=== PATIENT | male | born 1950 | race Caucasian/White ===

== ENCOUNTER 2017-04-25 05:29 | Observation (INO) | payer BC ==
[2017-04-25] MEDS ORDERED: FENTAnyl 50 MCG/ML VIAL ×2 (06:14→07:41)
[2017-04-25] MEDS ORDERED: PROPOFOL 20 ML (06:14)
[2017-04-25] MEDS ORDERED: ROCURONIUM 50 MG INJ (06:14)
[2017-04-25] MEDS ORDERED: NEOSTIGMINE 3 MG/3 ML SYRINGE (06:14)
[2017-04-25] MEDS ORDERED: MIDAZOLAM 1 MG/ML 2 ML INJ (06:14)
[2017-04-25] MEDS ORDERED: GLYCOPYRROLATE 1 MG INJ (06:14)
[2017-04-25] MEDS ORDERED: LIDOCAINE 2% (SDV) 5 ML INJ (06:14)
[2017-04-25] MEDS ORDERED: ROPIVACAINE 0.5 % 30 ML VIAL ×2 (06:24→07:01)
[2017-04-25] MEDS ORDERED: DEXAMETHASONE 4 MG/ML 1 ML INJ (06:29)
[2017-04-25] MEDS ORDERED: MEPERIDINE 25 MG INJ IV (06:30)
[2017-04-25] MEDS ORDERED: DIPHENHYDRAMINE 50 MG INJ IV (06:30)
[2017-04-25] MEDS ORDERED: LABETALOL HCL 20MG INJ IV (06:30)
[2017-04-25] MEDS ORDERED: morphine (1 MG/ML) 10ML SYRINGE IV ×3 (06:30)
[2017-04-25] MEDS ORDERED: ATROPINE 1 MG/10 ML SYRINGE IV (06:30)
[2017-04-25] MEDS ORDERED: MIDAZOLAM 1 MG/ML 2 ML INJ IV (06:30)
[2017-04-25] MEDS ORDERED: ONDANSETRON 4 MG INJ IV (06:30)
[2017-04-25] MEDS ORDERED: hydrALAzine 20 MG INJ IV (06:30)
[2017-04-25] MEDS ORDERED: EPHEDrine SULFATE 50 MG/5 ML SYG IV (06:30)
[2017-04-25] MEDS ORDERED: HYDROmorphONE (0.2 MG/ML) 10ML SYG IV ×3 (06:30)
[2017-04-25] MEDS ORDERED: OXYCODONE/ACETAMINOPHEN (5/325) TAB PO ×2 (06:30)
[2017-04-25] MEDS ORDERED: FENTAnyl 50 MCG/ML VIAL IV ×2 (06:30)
[2017-04-25] MEDS ORDERED: ONDANSETRON 4 MG INJ (06:30)
[2017-04-25] MEDS ORDERED: POVIDONE IODINE 10% 28.4 GM OINT (07:01)
[2017-04-25] MEDS ORDERED: CA CHLORIDE 10% 10 ML SYRINGE (07:01)
[2017-04-25] MEDS: THROMBIN 5000 UNIT VIAL (08:22)
[2017-04-25] MEDS: POLYMYXIN/BACITRACIN 1L IRRIG (08:22)
[2017-04-25] MEDS: GELATIN SIZE 100 SPONGE (08:22)
[2017-04-25] MEDS ORDERED: SUCCINYLCHOLINE CHLORIDE 100 MG/5 ML SYG IV (08:51)
[2017-04-25] MEDS ORDERED: CEFAZOLIN 1 GM INJ (11:19)
[2017-04-25] MEDS ORDERED: POLYMYXIN/BACITRACIN 1L IRRIG (12:02)
[2017-04-25] MEDS ORDERED: FLUMAZENIL 0.5 MG INJ (13:01)
[2017-04-25] MEDS ORDERED: CEFAZOLIN 1 GM INJ IV (13:30)
[2017-04-25] MEDS ORDERED: morphine 10 MG INJ IV (13:30)
[2017-04-25] MEDS ORDERED: HYDROmorphONE 0.2 MG/ML PCA IV (13:30)
[2017-04-25] MEDS ORDERED: BISACODYL 10 MG SUPP PR (13:30)
[2017-04-25] MEDS ORDERED: DIPHENHYDRAMINE 25 MG CAP PO (13:30)
[2017-04-25] MEDS: CEFAZOLIN 1 GM/50 ML (PMX) 50 ML IVPB ×2 (14:05→20:48)
[2017-04-25] MEDS: SOD CHLORIDE 0.9% 1,000 ML IV ×2 (14:06→22:41)
[2017-04-25] MEDS: HYDROmorphONE 0.2 MG/ML PCA IV (14:22)
[2017-04-25] MEDS: CEPASTAT LOZENGE MT (17:34)
[2017-04-25] MEDS ORDERED: BISACODYL (EC) 5 MG TAB PO (19:30)
[2017-04-25] MEDS: DOCUSATE SODIUM 100 MG CAP PO (20:48)
[2017-04-25] MEDS: SENNA/DOCUSATE NA (8.6MG/50MG) TAB PO (20:48)
[2017-04-25] MEDS: ATORVASTATIN 10 MG TAB PO (20:49)
[2017-04-26] MEDS: HYDROmorphONE 0.2 MG/ML PCA IV ×2 (03:48→13:44)
[2017-04-26 05:23] LABS: ADD MAN DIFF? NO
[2017-04-26 05:48] LABS: BASOPHILS % 0.1 % (0.0-2.0); HEMATOCRIT 39.9 % (42.0-52.0); HEMOGLOBIN 12.8 g/dl (14.0-18.0); LYMPHOCYTES # 1.3 10^3/ul (0.8-2.9); LYMPHOCYTES % 10.6 % (15.0-51.0); MEAN CORPUSCULAR HEMOGLOBIN 26.9 pg (29.0-33.0); MEAN CORPUSCULAR HGB CONC 32.1 g/dl (32.0-37.0); MEAN CORPUSCULAR VOLUME 83.8 fl (82.0-101.0); MEAN PLATELET VOLUME 12.8 fl (7.4-10.4); MONOCYTE # 1.5 10^3/ul (0.3-0.9); MONOCYTES % 12.3 % (0.0-11.0); NEUTROPHIL # 9.2 10^3/ul (1.6-7.5); NEUTROPHILS % 76.6 % (39.0-77.0); PLATELET COUNT 144 10^3/UL (140-415); RED BLOOD COUNT 4.76 10^6/ul (4.70-6.10); RED CELL DISTRIBUTION WIDTH 13.4 % (11.5-14.5)
[2017-04-26] MEDS: PANTOPRAZOLE (EC) 40 MG TAB PO (06:25)
[2017-04-26] MEDS: CEFAZOLIN 1 GM/50 ML (PMX) 50 ML IVPB ×3 (06:25→21:31)
[2017-04-26 06:34] LABS: ALANINE AMINOTRANSFERASE 32 IU/L (13-69); ALBUMIN 3.6 g/dl (3.3-4.9); ALBUMIN/GLOBULIN RATIO 1.16; ALKALINE PHOSPHATASE 71 IU/L (42-121); ANION GAP 15 (8-16); ASPARTATE AMINO TRANSFERASE 51 IU/L (15-46); BILIRUBIN,INDIRECT 0.5 mg/dl (0-1.1); BILIRUBIN,TOTAL 0.5 mg/dl (0.2-1.3); BLOOD UREA NITROGEN 19 mg/dl (7-20); CALCIUM 8.7 mg/dl (8.4-10.2); CARBON DIOXIDE 28 mmol/L (21-31); CHLORIDE 102 mmol/L (97-110); CREATININE 1.08 mg/dl (0.61-1.24); GLUCOSE 135 mg/dl (70-220); POTASSIUM 4.6 mmol/L (3.5-5.1); SODIUM 140 mmol/L (135-144); TOTAL PROTEIN 6.7 g/dl (6.1-8.1)
[2017-04-26] MEDS: DOCUSATE SODIUM 100 MG CAP PO ×2 (08:55→21:30)
[2017-04-26] MEDS: SENNA/DOCUSATE NA (8.6MG/50MG) TAB PO ×2 (08:55→21:30)
[2017-04-26] MEDS: AMLODIPINE 10 MG TAB PO (08:55)
[2017-04-26] MEDS: PSYLLIUM (SUGAR FREE) PACKET PO (08:56)
[2017-04-26] MEDS: VALSARTAN 160 MG TAB PO (08:56)
[2017-04-26] MEDS: SOD CHLORIDE 0.9% 1,000 ML IV ×2 (09:15→21:30)
[2017-04-26] MEDS: ONDANSETRON 4 MG INJ IV (14:07)
[2017-04-26] MEDS: RIVAROXABAN 10 MG TABLET PO (18:33)
[2017-04-26] MEDS: ATORVASTATIN 10 MG TAB PO (21:30)
[2017-04-27] MEDS: SOD CHLORIDE 0.9% 1,000 ML IV (05:15)
[2017-04-27] MEDS: PANTOPRAZOLE (EC) 40 MG TAB PO (06:03)
[2017-04-27] MEDS: CEFAZOLIN 1 GM/50 ML (PMX) 50 ML IVPB (06:03)
[2017-04-27] MEDS: DOCUSATE SODIUM 100 MG CAP PO (09:14)
[2017-04-27] MEDS: SENNA/DOCUSATE NA (8.6MG/50MG) TAB PO (09:14)
[2017-04-27] MEDS: PSYLLIUM (SUGAR FREE) PACKET PO (09:14)
[2017-04-27] MEDS: VALSARTAN 160 MG TAB PO (09:15)
[2017-04-27] MEDS: OXYCODONE/ACETAMINOPHEN (5/325) TAB PO (09:16)
[2017-04-27] MEDS ORDERED: MAGNESIUM HYDROXIDE 30ML CUP PO (21:00)
== END 2017-04-27 12:51 | disposition home or self-care (01) ==
LOC: SDS 05:29 → MS1 04-26 11:34 → ICU 13:15
DX: M19.072 Primary osteoarthritis, left ankle and foot (principal); S86.312A Strain of muscle(s) and tendon(s) of peroneal muscle group at lower leg level, left leg, initial encounter; E66.8 Other obesity; Z68.42 Body mass index [BMI] 45.0-49.9, adult; M65.9 Synovitis and tenosynovitis, unspecified; I10 Essential (primary) hypertension; E78.5 Hyperlipidemia, unspecified; K21.9 Gastro-esophageal reflux disease without esophagitis; Z79.82 Long term (current) use of aspirin; X58.XXXA Exposure to other specified factors, initial encounter; Y93.9 Activity, unspecified; Y99.9 Unspecified external cause status; Y92.9 Unspecified place or not applicable
CPT/HCPCS: 27630; 73610; 80053; 85025; 86999; 97116; 97163; 97530; 99217